=== PATIENT | female | born 1965 | race Asian ===

== ENCOUNTER 2018-02-25 07:27 | Day surgery (SDC) | payer OTHER, MEDICAID ==
--- NOTE | 2018-02-21 19:35 | RADRPT ---
Vent Rate: 83 bpm RR Interval: 0 msec AK Interval: 168 msec QRS Duration: 70 msec QT Interval: 376 msec QTC Interval: 441 msec P-R-T Monitor: 55 - 43 - 43 degrees Normal sinus rhythm Normal ECG Electronically Signed By: Alec Rogers [id number]
[2018-02-25] VITALS (21 sets, daily range): BP systolic 140–163; BP diastolic 63–83; PULSE 70–89; RESP 14–63; Ht 154.9 cm; Wt 63.0 kg
[~2018-02-25] VITALS: Ht 154.9 cm; Wt 63.0 kg
[2018-02-25] MEDS ORDERED: SOD CHLORIDE 0.9% 1,000 ML IV SCH (09:00)
[2018-02-25] MEDS ORDERED: CEFAZOLIN 2 GM/50 ML (PMX) 50 ML IVPB ONE (09:00)
--- NOTE | 2018-02-25 11:43 | PREAC ---
Date/Time of Note Date/Time of Note DATE: 02/25/18 TIME: 11:41 Anesthesia Eval and Record Evaluation Time Pre-Procedure Interview DATE: 02/25/18 TIME: 11:41 Age 52 Sex female NPO: 8 hrs Preoperative diagnosis left breast mass Planned procedure left breast needle localized partial mastectomy Past Medical History Past Medical History: None Surgery & Anesthesia Issues No known issue Meds Anticoagulation: No Beta Christina within 24 hr: No Reason Beta Christina not given: Pt. not on B-Christina No Active Prescriptions or Reported Meds Current Medications Sodium Chloride 1,000 ml @ 75 mls/hr [id number] IV ; Start 02/25/18 at 09:00; Stop 02/25/18 at 22:19 Meds reviewed: Yes Allergies Coded Allergies: No Known Drug Allergy (Unverified Allergy, Unknown, 02/25/18) Allergies Reviewed: Yes Labs/Studies Labs Reviewed: Reviewed by anesthesiologist test: Negative Studies: ECG (nl), CXR (No radiographic evidence of an acute cardiopulmonary process.) Pre-procedure Exam Last vitals Vital Signs Date Temp Pulse Resp B/P (MAP) Pulse Ox O2 O2 Flow FiO2 Time Delivery Rate 02/25/18 98.5 80 18 140/63 99 Room Air 10:38 (88) Airway: Adequate mouth opening, Adequate thyromental dist Mallampati: Mallampati II Teeth: Abnormal (partial denture upper) Lung: Normal Heart: Normal ASA Physical Status ASA physical status: 1 Emergency: None Planned Anesthetic General/MAC: ETT Planned Pain Management Parenteral pain med, Local by surgeon Pre-operative Attestations Prior to commencing anesthesia and surgery, the patient was re-evaluated, there was verification of: *The patient's identity *The results of appropriate recent lab work and preoperative vital signs *The above evaluation not changing prior to induction *Anesthetic plan, risk benefits, alternative and complications discussed with patient/family; questions answered; patient/family understands, accepts and wishes to proceed. Adolph Medrano M.D. Feb 25, 2018 11:43
[2018-02-25] MEDS ORDERED: CEFAZOLIN 1 GM INJ ONE (11:58)
[2018-02-25] MEDS ORDERED: ROCURONIUM 50 MG INJ ONE (11:58)
[2018-02-25] MEDS ORDERED: GLYCOPYRROLATE 0.4 MG INJ ONE (11:58)
[2018-02-25] MEDS ORDERED: PROPOFOL 20 ML ONE (11:58)
[2018-02-25] MEDS ORDERED: NEOSTIGMINE 3 MG/3 ML SYRINGE ONE (11:58)
[2018-02-25] MEDS ORDERED: ONDANSETRON 4 MG INJ ONE (11:59)
[2018-02-25] MEDS ORDERED: FENTAnyl 50 MCG/ML VIAL ONE (11:59)
[2018-02-25] MEDS ORDERED: DEXAMETHASONE 4 MG/ML 1 ML INJ ONE (11:59)
[2018-02-25] MEDS ORDERED: MIDAZOLAM 1 MG/ML 2 ML INJ ONE (11:59)
[2018-02-25] MEDS ORDERED: TRIMETHOBENZAMIDE 100 MG/ML VIAL IM PRN (12:00)
[2018-02-25] MEDS ORDERED: DIPHENHYDRAMINE 50 MG INJ IV PRN (12:00)
[2018-02-25] MEDS ORDERED: OXYCODONE/ACETAMINOPHEN (5/325) TAB PO PRN ×2 (12:00)
[2018-02-25] MEDS ORDERED: MIDAZOLAM 1 MG/ML 2 ML INJ IV PRN (12:00)
[2018-02-25] MEDS ORDERED: HYDROmorphONE 1 MG/5 ML IV SYRINGE IV PRN ×3 (12:00)
[2018-02-25] MEDS ORDERED: LABETALOL HCL 20MG INJ IV PRN (12:00)
[2018-02-25] MEDS ORDERED: MEPERIDINE 25 MG INJ IV PRN (12:00)
[2018-02-25] MEDS ORDERED: FENTAnyl 50 MCG/ML VIAL IV PRN ×2 (12:00)
[2018-02-25] MEDS ORDERED: ONDANSETRON 4 MG INJ IV PRN (12:00)
[2018-02-25] MEDS ORDERED: ALBUTEROL 0.083% (NEB) 2.5 MG/3 ML AMP HHN PRN (12:00)
[2018-02-25] MEDS ORDERED: IPRATROPIUM (NEB) 0.5 MG/2.5 ML AMP HHN PRN (12:00)
[2018-02-25] MEDS ORDERED: hydrALAzine 20 MG INJ IV PRN (12:00)
[2018-02-25] MEDS ORDERED: EPHEDrine SULFATE 50 MG/5 ML SYG IV PRN (12:00)
[2018-02-25] MEDS ORDERED: SUGAMMADEX SODIUM 200 MG/2 ML VIAL IV ONE (12:44)
--- NOTE | 2018-02-25 12:58 | SIPON ---
Date/Time of Note Date/Time of Note DATE: 02/25/18 TIME: 12:56 Operative Report Preoperative Diagnosis Left breast papilloma rule out other Postoperative Diagnosis Same Operation/Procedure Performed Left needle directed partial mastectomy Surgeon see signature line executive marketing assistant none Anesthesia: general Estimated blood loss: 10 - 50 ml's Transfusion Required none Specimen left breast specimen Grafts/Implants none Complications none KEENAN REYNOSO MD Feb 25, 2018 12:58
[2018-02-25] MEDS ORDERED: HYDROCODONE/APAP (7.5/325) TAB PO PRN (13:00)
--- NOTE | 2018-02-25 13:15 | PAC ---
Date/Time of Note Date/Time of Note DATE: 02/25/18 TIME: 13:14 Post-Anesthesia Notes Post-Anesthesia Note Last documented vital signs Vital Signs Date Temp Pulse Resp B/P (MAP) Pulse Ox O2 O2 Flow FiO2 Time Delivery Rate 02/25/18 98.5 80 18 140/63 99 Room Air 13:15 (88) Activity: WNL Respiratory function: WNL Cardiovascular function: WNL Mental status: Baseline Pain reasonably controlled: Yes Hydration appropriate: Yes Nausea/Vomiting absent: Yes Adolph Medrano M.D. Feb 25, 2018 13:15
[2018-02-25] MEDS: FENTAnyl 50 MCG/ML VIAL IV PRN ×2 (13:31→14:19)
--- NOTE | 2018-02-25 13:55 | OPR ---
DATE OF OPERATION: 02/25/2018 PREOPERATIVE DIAGNOSIS: Papillary lesion, left breast. POSTOPERATIVE DIAGNOSIS: Papillary lesion, left breast. OPERATION PERFORMED: Left needle-directed partial mastectomy. ANESTHESIA: General. ANESTHESIOLOGIST: Nurse principal network engineer, Kyrie Gardner CRNA SURGEON: Kayden Patel MD STRIKE PLANNING APPLICATIONS: None. INDICATIONS FOR PROCEDURE: The patient is a 52-year-old female who underwent surveillance mammograph y and on subsequent ultrasonography, she was found to have a lesion at approximately the 5 to 6 o'hollis ck location of the left breast approximately 4 to 5 cm from the nipple-areolar border. Core biopsy r evealed a papilloma. She was counseled as to need for total excision of the lesion. She consented a nd was scheduled for surgery. DESCRIPTION OF PROCEDURE: On the morning of surgery, the patient presented to [facility] where she underwent localization of the lesion performed by attending radiologist, Dr. Itzel Escudero. Subsequently, she was brought to the operating theater, placed under general anesth esia. The left breast was prepped and draped in the usual sterile fashion. A curvilinear incision w as then made in the region of the previously placed localization wire. Subcutaneous tissue was disse cted with cautery. Skin edges were then elevated with skin hooks and wide circumferential dissection of the tissue associated with the lesion then took place using cautery. Specimen was elevated, severino sected, oriented and sent for radiographic confirmation of capture. Capture was confirmed. Specimen was then sent for permanent pathologic analysis. The wound was irrigated. Minimal bleeding was con trolled with cautery. Skin was then reapproximated with 4-0 Vicryl suture in subcuticular fashion an d Dermabond was applied. The patient tolerated procedure well. Estimated blood loss was 10 mL. The re were no complications. The patient was transported in stable condition to the recovery room where circumferential compression dressing was applied. Dictated By: KAYDEN LARA/IAN Conf#: [id number] DID#: [id number]
[2018-02-25] MEDS ORDERED: MECLIZINE 12.5 MG TAB PO ONE (15:00)
== END 2018-02-25 16:42 | disposition home or self-care (01) ==
LOC: SDS 07:27
PROVIDERS: ATTEND Surgery Surgical Oncology
DX: C50.912 Malignant neoplasm of unspecified site of left female breast (principal); E78.5 Hyperlipidemia, unspecified
CPT/HCPCS: 19301; 80053; 84703; 85025; 85610; 85730; 88307; J0690; J1100; J1170; J2250; J2405; J3010; 71045; 88361; 93005; J2710

== ENCOUNTER 2018-04-12 07:03 | Day surgery (SDC) | payer OTHER, MEDICAID ==
[~2018-04-12] VITALS: Ht 154.9 cm; Wt 64.0 kg
[2018-04-12] VITALS (30 sets, daily range): BP systolic 106–144; BP diastolic 48–85; PULSE 70–84; RESP 12–23; Ht 154.9 cm; Wt 64.0 kg
[~2018-04-12 07:03] MED LIST: SEVOFLURANE 15 MIN ONE
[2018-04-12] MEDS ORDERED: OMEG-87 PO (07:40)
[2018-04-12] MEDS ORDERED: TURM1CAP2 PO (07:40)
[2018-04-12] MEDS ORDERED: VITA400C41 ORAL (07:45)
[2018-04-12] MEDS ORDERED: CEFAZOLIN 2 GM/50 ML (PMX) 50 ML IVPB ONE (08:00)
[2018-04-12] MEDS ORDERED: SOD CHLORIDE 0.9% 1,000 ML IV SCH (08:00)
--- NOTE | 2018-04-12 10:06 | PREAC ---
Date/Time of Note Date/Time of Note DATE: 04/12/18 TIME: 10:04 Anesthesia Eval and Record Evaluation Time Pre-Procedure Interview DATE: 04/12/18 TIME: 10:04 Age 52 Sex female NPO: 8 hrs Preoperative diagnosis Lt breast CA Planned procedure Lt breast re-excision partial Mastectomy Past Medical History Past Medical History: Includes Cardio: Dyslipidemia Surgery & Anesthesia Issues No known issue Meds Anticoagulation: No Beta Christina within 24 hr: No Reason Beta Christina not given: Pt. not on B-Christina Reported Medications Vitamin E Mixed (Urti-Y-Gjuby) 400 Unit Capsule, 400 UNIT ORAL DAILY 04/12/18 Turmeric/Turmeric Root Extract (Turmeric 500 mg Capsule) 1 Each Capsule, 1 CAP.EC PO DAILY, CAP 04/12/18 [place]-3S/Dha/Epa/Fish Oil (FISH OIL DR 1,000 MG SOFTGEL) 1 Each Capsule.dr, 1 CAP PO DAILY 04/12/18 Current Medications Sodium Chloride 1,000 ml @ 75 mls/hr [id number] IV ; Start 04/12/18 at 08:00; Stop 04/12/18 at 21:19 Meds reviewed: Yes Allergies Coded Allergies: No Known Drug Allergy (Unverified Allergy, Unknown, 04/12/18) Allergies Reviewed: Yes Labs/Studies Labs Reviewed: Reviewed by anesthesiologist test: Negative Studies: ECG Pre-procedure Exam Last vitals Vital Signs Date Temp Pulse Resp B/P (MAP) Pulse Ox O2 O2 Flow FiO2 Time Delivery Rate 04/12/18 97.0 84 16 128/73 99 Room Air 08:08 (91) Airway: Adequate mouth opening, Adequate thyromental dist Mallampati: Mallampati II Teeth: Normal Lung: Normal Heart: Normal ASA Physical Status ASA physical status: 3 Emergency: None Planned Anesthetic General/MAC: LMA Pre-operative Attestations Prior to commencing anesthesia and surgery, the patient was re-evaluated, there was verification of: *The patient's identity *The results of appropriate recent lab work and preoperative vital signs *The above evaluation not changing prior to induction *Anesthetic plan, risk benefits, alternative and complications discussed with patient/family; questions answered; patient/family understands, accepts and wishes to proceed. SARAH WELCH MD Apr 12, 2018 10:06
[2018-04-12] MEDS ORDERED: ISOSULFAN BLUE 1% 5 ML INJ SC ONE (10:15)
[2018-04-12] MEDS ORDERED: MIDAZOLAM 1 MG/ML 2 ML INJ ONE (10:28)
[2018-04-12] MEDS ORDERED: FENTAnyl 50 MCG/ML VIAL ONE (10:28)
--- NOTE | 2018-04-12 11:21 | SIPON ---
Date/Time of Note Date/Time of Note DATE: 04/12/18 TIME: 11:20 Operative Report Preoperative Diagnosis Invasive cancer left breast Postoperative Diagnosis Same Operation/Procedure Performed Left reexcision partial mastectomy and sentinel lymph node biopsy Surgeon see signature line account management assistant Dr Jessica Second assist: DOMINGA LEBLANC MD Anesthesia: general Estimated blood loss: 10 - 50 ml's Transfusion Required none Specimen Left reexcision partial mastectomy specimen and sentinel lymph nodes Grafts/Implants none Complications none KEENAN REYNOSO MD Apr 12, 2018 11:21
[2018-04-12] MEDS ORDERED: LIDOCAINE 2% (SDV) 5 ML INJ ONE (11:22)
[2018-04-12] MEDS ORDERED: PROPOFOL 20 ML ONE (11:22)
[2018-04-12] MEDS ORDERED: CEFAZOLIN 1 GM INJ ONE (11:22)
[2018-04-12] MEDS ORDERED: DEXAMETHASONE 4 MG/ML 5 ML INJ ONE (11:23)
[2018-04-12] MEDS ORDERED: METOCLOPRAMIDE 10 MG INJ ONE (11:23)
[2018-04-12] MEDS ORDERED: ONDANSETRON 4 MG INJ ONE ×2 (11:23→11:49)
[2018-04-12] MEDS ORDERED: HYDROCODONE/APAP (7.5/325) TAB PO PRN (11:30)
--- NOTE | 2018-04-12 11:39 | OPR ---
DATE OF OPERATION: 04/12/2018 PREOPERATIVE DIAGNOSIS: Invasive cancer, left breast, need for reexcision partial mastectomy and sen tinel lymph node biopsy. POSTOPERATIVE DIAGNOSIS: Invasive cancer, left breast, need for reexcision partial mastectomy and se ntinel lymph node biopsy. ANESTHESIA: General. ANESTHESIOLOGIST: Adolph Rocha MD SURGEON: Kayden Patel MD DESIGN AND SALES CONSULTANT: Gino Jessica MD and Howard Lozano MD INDICATIONS FOR PROCEDURE: The patient is a 52-year-old female who underwent surveillance mammograph y and was found to have a suspicious area in her left breast. Core biopsy confirmed DCIS. She was s cheduled as to need for needle-directed excisional biopsy. She underwent that procedure and it was f ound in addition to having residual DCIS, she had a 2.5 mm area of invasion and the margins were inad equate. She was counseled as to the need for reexcision partial mastectomy and sentinel lymph node b iopsy. She consented and was scheduled for surgery. DESCRIPTION OF PROCEDURE: The patient was brought to the operating theater, placed under general ane sthesia. The left breast and axillary region were prepped and draped in usual sterile fashion. Appr oximately 3 to 4 mL of 1% Lymphazurin blue dye were injected adjacent to the previous biopsy cavity. The breast was gently massaged for 12 minutes. At this point, a 3 to 4 cm incision was made in the left axillary hairline. Subcutaneous tissue was dissected with cautery down through the clavipectora l fascia. There was lot of fibrosis and it was difficult to identify dye-stained lymphatic; however, it did appear to be area with slightly enlarged lymph nodes. These 2 lymph nodes were removed and s ent for intraoperative analysis by attending pathologist, Dr. Edwards, who stated that grossly appea red to be benign so he deferred the permanent pathologic evaluation. At this point, Dr. Patel return ed to the room. The wound cavity and the axilla were irrigated. Minimal bleeding was controlled wit h cautery. Decision was made not to place a drain. The skin was reapproximated with 4-0 Vicryl sutu re in subcuticular fashion. Attention was then directed to performing the reexcision partial mastect hayden. The previous surgical incisional scar was reincised. Subcutaneous tissue was dissected with ca utery until the wound cavity was entered. Several mL of straw-colored seroma fluid were suction evac uated from the wound cavity and 360-degree circumferential dissection of the previous wound cavity th en took place using cautery. Great care was taken to ensure an adequate posterior margin as well as this was the area where the margin was positive for cancer as well as the anterior area. The entire specimen was elevated, transected, oriented and sent for permanent pathologic analysis. The wound wa s irrigated. Residual bleeding was controlled with cautery. The skin was then reapproximated with d eep dermal layer, 4-0 Vicryl sutures in interrupted fashion, followed by final skin approximation wit h 5-0 PDS sutures in subcuticular fashion. Benzoin and Steri-Strips were applied to both incisions. The patient tolerated procedure well. The estimated blood loss was 20 mL. There were no complicati ons. The patient was transported in stable condition to the recovery room where circumferential comp ression dressing was applied. Dictated By: KAYDEN LARA/IAN Conf#: [id number] DID#: [id number]
--- NOTE | 2018-04-12 11:48 | PAC ---
Date/Time of Note Date/Time of Note DATE: 04/12/18 TIME: 11:47 Post-Anesthesia Notes Post-Anesthesia Note Last documented vital signs Vital Signs Date Temp Pulse Resp B/P (MAP) Pulse Ox O2 O2 Flow FiO2 Time Delivery Rate 04/12/18 97.0 84 16 128/73 99 Room Air 08:08 (91) Activity: WNL Respiratory function: WNL Cardiovascular function: WNL Mental status: Baseline Pain reasonably controlled: Yes Hydration appropriate: Yes Nausea/Vomiting absent: Yes Comments BP:124/56, P:78, Spo2:100 %, T:98,4 SARAH WELCH MD Apr 12, 2018 11:48
[2018-04-12] MEDS ORDERED: HYDROmorphONE 1 MG/5 ML IV SYRINGE IV ONE (11:49)
[2018-04-12] MEDS ORDERED: hydrALAzine 20 MG INJ IV PRN (12:00)
[2018-04-12] MEDS ORDERED: KETOROLAC 30 MG INJ IV PRN (12:00)
[2018-04-12] MEDS ORDERED: LABETALOL HCL 20MG INJ IV PRN (12:00)
[2018-04-12] MEDS ORDERED: METOCLOPRAMIDE 10 MG INJ IV PRN (12:00)
[2018-04-12] MEDS ORDERED: ONDANSETRON 4 MG INJ IV PRN (12:00)
[2018-04-12] MEDS ORDERED: DIPHENHYDRAMINE 50 MG INJ IV PRN (12:00)
[2018-04-12] MEDS ORDERED: FENTAnyl 50 MCG/ML VIAL IV PRN (12:00)
[2018-04-12] MEDS ORDERED: MEPERIDINE 25 MG INJ IV PRN (12:00)
[2018-04-12] MEDS ORDERED: HYDROmorphONE 1 MG/5 ML IV SYRINGE IV PRN ×2 (12:00)
[2018-04-12] MEDS ORDERED: IBUPROFEN 600 MG TAB PO PRN (13:30)
[2018-04-12] MEDS ORDERED: morphine 2 MG INJ IV PRN (13:30)
[2018-04-12] MEDS: ONDANSETRON 4 MG INJ IV PRN (20:09)
[2018-04-12] MEDS: D5W-0.45 NACL + KCL 20 MEQ 1,000 ML IV SCH (20:09)
[2018-04-12] MEDS ORDERED: HYDROCODONE/APAP (5/325) TAB PO PRN (22:30)
[2018-04-13 01:21] VITALS: BP 116/59; PULSE 88; RESP 18
--- NOTE | 2018-04-13 02:13 | HP ---
DATE OF ADMISSION: 04/12/2018 CHIEF COMPLAINT AND HISTORY OF PRESENT ILLNESS: The patient is a 52-year-old female who underwent fernández rveillance mammography a few months ago and subsequently ultrasonography and was found to have left b reast suspicious lesion. The patient underwent core biopsy which revealed papilloma. The patient un derwent left needle-directed partial mastectomy. Pathology came back as early invasive ductal carcin astrid; it extends to 1 cm from posterior margin and inferior margin. The patient was seen by Dr. Patel as an outpatient and was admitted again today for re-excision partial mastectomy and sentinel lymph node biopsy. The patient has significant postoperative pain and also had 3 episodes of vomiting post operatively. The patient is being admitted for further evaluation and management. The patient denie d any history of cough or shortness of breath. No history of abdominal pain. No history of leg miguel a. No history of paresthesias. No history of headache. No history of dizziness. No history of wea kness in any extremity. REVIEW OF SYSTEMS: Other than postoperative pain and multiple episodes of vomiting, the rest of the review of systems was unremarkable. PAST MEDICAL HISTORY: As stated above. ALLERGIES: NONE. MEDICATIONS PRIOR TO ADMISSION: None. SOCIAL HISTORY: No smoking, no alcohol. FAMILY HISTORY: The patient's father of lung cancer. PHYSICAL EXAMINATION: GENERAL: The patient is awake, alert, fairly oriented. VITAL SIGNS: Temperature 97.9, pulse 70, respirations 18, blood pressure 133/66, O2 saturation 98% o n 2 liters nasal cannula. HEENT: No eye discharge or redness. Conjunctivae and lids are normal. Oropharynx clear. NECK: Supple. No mass. No thyromegaly. CHEST: Fairly clear. CARDIOVASCULAR: S1 and S2 normal. No murmur. ABDOMEN: Soft, nondistended, nontender. EXTREMITIES: No leg edema. NEUROLOGIC: The patient is awake, alert, fairly oriented with no gross focal deficit. RECENT LABORATORY DATA: WBC 8.9, hemoglobin 12.7, platelet 243. Sodium 142, potassium 3.5, BUN 12, creatinine 0.5. Liver enzymes normal. IMPRESSION: 1. Left breast invasive cancer status post re-excision partial mastectomy and sentinel lymph node bi opsy. 2. Postoperative vomiting. PLAN: The patient admitted on medical floor. The patient will be started on clear liquid diet which will be advanced as tolerated. The patient will also be given IV Zofran for nausea and vomiting. W e will start the patient on IV fluids and also will use SCD for DVT prophylaxis. For pain control, t he patient will be given Tylenol, [place] and morphine. We will discontinue ibuprofen due to multiple episodes of vomiting. We will do followup labs in the morning. Plan of care was discussed with the patient and nursing staff. Dictated By: BESSIE PHILLIPS/IAN Conf#: [id number] DID#: [id number]
[2018-04-13] MEDS: D5W-0.45 NACL + KCL 20 MEQ 1,000 ML IV SCH ×2 (04:15→06:00)
[2018-04-13] MEDS: ONDANSETRON 4 MG INJ IV PRN ×2 (04:20→09:19)
[2018-04-13] MEDS: ACETAMINOPHEN 500 MG TAB PO PRN ×2 (04:20→09:20)
[2018-04-13 08:00] VITALS: BP 121/65; PULSE 77; RESP 18
--- NOTE | 2018-04-13 11:46 | DS ---
Date/Time of Note Date/Time of Note DATE: 04/13/18 TIME: 11:45 Discharge Summary Admission/Discharge Info Admit Date/Time 04/12/18 Discharge Date/Time 04/13/18 Discharge Diagnosis 1. Left breast invasive cancer status post re-excision partial mastectomy and sentinel lymph node biopsy. 2. Postoperative vomiting. Patient Condition: Fair Consults surgery Procedures mastectomy Hx of Present Illness Patient with left breast cancer comes in for scheduled mastectomy Hospital Course Patient with left breast cancer comes in for scheduled mastectomy. Patient tolerated the procedure and when felt to be stable, she was sent home. Home Meds Reported Medications Vitamin E Mixed (Zhqc-M-Yhprg) 400 Unit Capsule, 400 UNIT ORAL DAILY 04/12/18 Turmeric/Turmeric Root Extract (Turmeric 500 mg Capsule) 1 Each Capsule, 1 CAP.EC PO DAILY, CAP 04/12/18 [place]-3S/Dha/Epa/Fish Oil (FISH OIL DR 1,000 MG SOFTGEL) 1 Each Capsule.dr, 1 CAP PO DAILY 04/12/18 Primary Care Provider Not On Staff Doctor Pending Labs Laboratory Tests Test 04/13/18 07:18 04/13/18 08:21 Lab Scanned Report REFERENCE LAB [id number] White Blood Count 15.2 10^3/ul (4.8-10.8) Red Blood Count 3.77 10^6/ul (4.20-5.40) Hemoglobin 11.9 g/dl (12.0-16.0) Hematocrit 35.4 % (37.0-47.0) Mean Corpuscular Volume 93.9 fl (82.0-101.0) Mean Corpuscular Hemoglobin 31.6 pg (29.0-33.0) Mean Corpuscular 33.6 g/dl (32.0-37.0) Hemoglobin Concent Red Cell Distribution Width 12.0 % (11.5-14.5) Platelet Count 232 10^3/UL (140-415) Mean Platelet Volume 9.0 fl (7.4-10.4) Immature Granulocytes % 0.500 % (0.001-0.429) Neutrophils % 79.3 % (39.0-77.0) Lymphocytes % 12.4 % (15.0-51.0) Monocytes % 7.6 % (0.0-11.0) Eosinophils % 0.0 % (0.0-7.0) Basophils % 0.2 % (0.0-2.0) Nucleated Red Blood Cells % 0.0 /100WBC (0.0-0.0) Immature Granulocytes # 0.080 10^3/ul (0.0-0.031) Neutrophils # 12.1 10^3/ul (1.6-7.5) Lymphocytes # 1.9 10^3/ul (0.8-2.9) Monocytes # 1.2 10^3/ul (0.3-0.9) Eosinophils # 0.0 10^3/ul (0.0-0.5) Basophils # 0.0 10^3/ul (0.0-0.1) Nucleated Red Blood Cells # 0.0 10^3/ul (0.0-0.0) Sodium Level 141 mmol/L (135-144) Potassium Level 4.2 mmol/L (3.5-5.1) Chloride Level 110 mmol/L (97-110) Carbon Dioxide Level 23 mmol/L (21-31) Anion Gap 8 (5-13) Blood Urea Nitrogen 10 mg/dl (7-20) Creatinine 0.59 mg/dl (0.44-1.00) Est Glomerular Filtrat > 60 mL/min (>60) Rate mL/min Glucose Level 146 mg/dl (70-220) Calcium Level 8.9 mg/dl (8.4-10.2) JAMES FREEMAN Apr 13, 2018 11:46
== END 2018-04-13 13:42 | disposition home or self-care (01) ==
LOC: SDS 07:03 → MS1 13:53 → SDS 04-13 13:42
PROVIDERS: ATTEND Surgery Surgical Oncology
DX: D05.12 Intraductal carcinoma in situ of left breast (principal); E78.5 Hyperlipidemia, unspecified
CPT/HCPCS: 19301; 38500; 38792; 80048; 84703; 85025; 88305; 88307; J0690; J1100; J1170; J1885; J2175; J2250; J2405; J2765; J3010; J3480; Q9968

== ENCOUNTER 2018-08-08 07:45 | Emergency (ER) | payer BC, OTHER ==
[~2018-08-08] VITALS: Ht 154.9 cm; Wt 65.5 kg
[~2018-08-08 07:45] MED LIST changes: +OMEG-87 PO; -SEVOFLURANE 15 MIN ONE; +TURM1CAP2 PO; +VITA400C41 ORAL
[2018-08-08 07:51] VITALS: Ht 154.9 cm; Wt 65.5 kg
[2018-08-08] MEDS ORDERED: OXYCODONE/ACETAMINOPHEN (5/325) TAB PO ONE (08:30)
--- NOTE | 2018-08-08 09:53 | ERD ---
ER Documentation Chief Complaint Chief Complaint BLOODY DISCHARGE FROM LEFT BREAST X 1 DAY. HX OF CA; SURGERY IN MARCH. HPI 52-year-old female with history of left breast cancer presents with complaint of bloody discharge from left breast for the past day. Patient states that she received a partial meniscectomy in March for cancer and finished radiation therapy 4 days ago. She is being seen by a surgeon Dr. Patel. She called Dr. Patel yesterday but he was unavailable and she got very worried so she came to the ER. She was also told that Dr. Solorzano may be in this hospital today. Denies any fevers, chills, headache, back pain, shortness of breath, chest pain, weight loss, fatigue, night sweats. ROS All systems reviewed and are negative except as per history of present illness. Medications Home Meds Active Scripts Hydrocodone/Acetaminophen ([place] 5-325 Tablet) 1 Each Tablet, 1 TAB PO Q6H PRN for PAIN, #15 TAB Prov:YUE BRAUN 08/08/18 Reported Medications Vitamin E Mixed ([id number]) 400 Unit Capsule, 400 UNIT ORAL DAILY 04/12/18 Turmeric/Turmeric Root Extract (Turmeric 500 mg Capsule) 1 Each Capsule, 1 CAP.EC PO DAILY, CAP 04/12/18 [place]-3S/Dha/Epa/Fish Oil (FISH OIL DR 1,000 MG SOFTGEL) 1 Each Capsule.dr, 1 CAP PO DAILY 04/12/18 Allergies Allergies: Coded Allergies: No Known Drug Allergy (Unverified Allergy, Unknown, 04/12/18) PMhx/Soc History of Surgery: Yes (LT BREAST PARTIAL MASTECTOMY,c section) Anesthesia Reaction: Yes (N/V) Hx Neurological Disorder: Yes (VERTIGO) Hx Respiratory Disorders: No Hx Cardiac Disorders: Yes (HLD) Hx Psychiatric Problems: No Hx Miscellaneous Medical Probl: No Hx Alcohol Use: No Hx Substance Use: No Hx Tobacco Use: No Smoking Status: Never smoker FmHx Family History: No diabetes, No coronary disease, No other Physical Exam Vitals Vital Signs Date Temp Pulse Resp B/P (MAP) Pulse Ox O2 O2 Flow FiO2 Time Delivery Rate 08/08/18 98.5 95 18 159/80 99 07:51 (106) Physical Exam Const: No acute distress Head: Atraumatic Eyes: Normal Conjunctiva ENT: Normal External Ears, Nose and Mouth. Neck: Full range of motion. No meningismus. Resp: Clear to auscultation bilaterally Cardio: Regular rate and rhythm, no murmurs Abd: Soft, non tender, non distended. Normal bowel sounds Skin: No petechiae or rashes Back: No midline or flank tenderness Ext: No cyanosis, or edema Neur: Awake and alert Psych: Normal Mood and Affect Breast: Performed with shop laborer present. There is tenderness to palpation in the left breast with mild erythema. There is no discharge noted. There an indurated, nonfluctuant mass in the 3:00 area. Result Diagram: 08/08/18 1009 08/08/18 1009 Results 24 hrs Laboratory Tests Test 08/08/18 10:09 White Blood Count 6.9 10^3/ul Red Blood Count 4.23 10^6/ul Hemoglobin 13.5 g/dl Hematocrit 40.1 % Mean Corpuscular Volume 94.8 fl Mean Corpuscular Hemoglobin 31.9 pg Mean Corpuscular Hemoglobin Concent 33.7 g/dl Red Cell Distribution Width 12.2 % Platelet Count 243 10^3/UL Mean Platelet Volume 8.8 fl Immature Granulocytes % 0.300 % Neutrophils % 69.0 % Lymphocytes % 20.5 % Monocytes % 8.3 % Eosinophils % 1.6 % Basophils % 0.3 % Nucleated Red Blood Cells % 0.0 /100WBC Immature Granulocytes # 0.020 10^3/ul Neutrophils # 4.8 10^3/ul Lymphocytes # 1.4 10^3/ul Monocytes # 0.6 10^3/ul Eosinophils # 0.1 10^3/ul Basophils # 0.0 10^3/ul Nucleated Red Blood Cells # 0.0 10^3/ul Sodium Level 142 mmol/L Potassium Level 4.9 mmol/L Chloride Level 106 mmol/L Carbon Dioxide Level 27 mmol/L Anion Gap 9 Blood Urea Nitrogen 12 mg/dl Creatinine 0.66 mg/dl Est Glomerular Filtrat Rate mL/min > 60 mL/min Glucose Level 109 mg/dl Calcium Level 9.3 mg/dl Total Bilirubin 0.5 mg/dl Direct Bilirubin 0.00 mg/dl Indirect Bilirubin 0.5 mg/dl Aspartate Amino Transf (AST/SGOT) 47 IU/L Alanine Aminotransferase (ALT/SGPT) 70 IU/L Alkaline Phosphatase 103 IU/L Total Protein 8.0 g/dl Albumin 4.3 g/dl Globulin 3.70 g/dl Albumin/Globulin Ratio 1.16 Current Medications Medications Dose Sig/Lizzy Start Time Status Last (Trade) Ordered Route PRN Stop Time Admin Dose Reason Admin Oxycodone/ 1 tab ONCE ONCE 08/08/18 DC 08/08/18 Acetaminophen PO 08:30 08:24 (Percocet 08/08/18 08:31 (5/ 325)) Lidocaine/ 50 ml ONCE ONCE 08/08/18 DC Epinephrine INJ 13:00 (Xylocaine 08/08/18 13:03 1%/ Epi (Mdv)) 1 ea ONCE ONCE 08/08/18 DC Non-Formulary INJ 13:30 Medication 08/08/18 13:31 Procedures/MDM DIAGNOSTIC IMAGING REPORT Patient: PITER BROUSSARD : 1965 Age: 52 Sex: F MR #: [id number] DOS: 08/08/1812 Ordering MD: YUE BRAUN Location: [facility] Room/Bed: PROCEDURE: Left breast ultrasound. CLINICAL INDICATION: History of partial mastectomy and left breast bloody discharge. TECHNIQUE: High-resolution sonography of the left breast was performed in the axial and sagittal planes. COMPARISON: No prior study is available for comparison. FINDINGS: In the left breast 4 o'clock position, there is a homogeneous mass with smooth margins measuring 4.5 x 4.1 x 4.2 cm. The mass is 3.8 cm from the nipple. There is no other cystic or solid mass. The breast parenchyma is otherwise normal. IMPRESSION: 1. Mass measuring 4.5 x 4.1 x 4.2 cm in the 4 o'clock position of the left breast. This may be a solid mass, hematoma, or abscess. Ultrasound-guided aspiration or biopsy should be considered. 2. No other abnormality of the visualized portion of the left breast. RPTAT: QQ .Danny Gilbert MD, MD Date Time Electronically viewed and signed by .Danny Gilbert MD, on 08/08/2018 12:13 .R/ CC: YUE BRAUN [id number] MDM: I discussed the case with my supervising physician Dr. Carbone and he stated that mass could be aspirated to detect possible infection and if one was found patient could be placed on antibiotics. He also stated that patient's surgeon Dr. Patel could be informed that the patient was here in the ER. I spoke with Dr. Patel who referred me to Dr. Jessica. Dr. Jessica stated he will come in and see the patient. Apparently patient left during the ER course to go to Dr. Jessica's office without notifying me and upon return stated that Dr. Jessica performed an aspiration of the breast without finding any signs of infection. I spoke to Dr. Jessica and he stated that patient did not have an infection and would not need any antibiotics. However saw Dr. Jessica told me to discharge patient with instructions to follow-up at Dr. Patel's office today for mammogram, which I did and is documented on the discharge instructions. Patient stated she would like to be discharged with medications for pain, which I felt was appropriate given her condition. This time I have low suspicion for breast abscess, acute space infection, mastitis. Patient was advised to follow-up with Dr. Solorzano today for mammogram. At this time, patient is stable for discharge and outpatient management. I have instructed the patient to promptly return to the ER for any new or worsening symptoms including but not limited to increased pain, fever, nausea, vomiting, weakness or LOC. The patient and/or family expressed understanding of and agreement with this plan. All questions were answered. Home care instructions were provided. DISCLAIMER: Inadvertent spelling and grammatical errors are likely due to EHR/dictation software use and do not reflect on the overall quality of patient care. Also, please note that the electronic time recorded on this note does not necessarily reflect the actual time of the patient encounter. Departure Diagnosis: Primary Impression: Breast mass Condition: Stable YUE BRAUN Aug 08, 2018 09:53
[2018-08-08] MEDS: LIDOCAINE 1%/EPI (MDV) 50 ML INJ INJ ONE ×2 (13:00→13:32)
[2018-08-08] MEDS ORDERED: LIDOCAINE 1%/EPI (MDV) 30 ML INJ INJ ONE (13:30)
[2018-08-08] MEDS ORDERED: HYDR-4011 PO (15:21)
== END 2018-08-08 15:33 | disposition home or self-care (01) ==
LOC: FTE 07:45
DX: N63.20 Unspecified lump in the left breast, unspecified quadrant (principal)
CPT/HCPCS: 76642; 80053; 85025; Z7502; Z7610